=== PATIENT | female | born 1980 | race Caucasian/White ===

== ENCOUNTER 2023-09-12 14:40 | Outpatient (AMB) | payer BC, SELFPAY ==
[2023-09-12 14:49] VITALS: BP 122/70; PULSE 77; O2SAT 100; BMI 34.7
--- NOTE | 2023-09-12 14:49 | A.OFFPC_ITS ---
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 ?? Prior PCP:?None x 10 yrs Last office visit/CPE:?10+ yrs Acute issue(s):? Needs MMR ?? PMHx:?Depression/Anxiety has therapist and med provider for bupropion. HPV SurgHx:?LEEP 7 years ago FHx:?Mom:Unknown. Dad: Healthy Uncles x3 seizures. SocHx: Nonsmoker. EtOH social 3 dr a month. No drugs PFSH Medical History (Updated 09/12/23 @ 15:32 by Sherif Handley) Seizure Surgical History (Updated 09/12/23 @ 15:01 by Laure Bell CMA) No pertinent past surgical history Family History (Updated 09/12/23 @ 15:03 by Laure Bell CMA) Paternal Uncle Epilepsy Social History (Updated 09/12/23 @ 15:09 by Laure Bell CMA) Household Members: Significant Other Both parents involved: No Caregiver staying overnight: No Housing: House Are you a primary manager home healthcare to a significant other at home: No Do you presently have visiting nurse or other home services: No 75 years or older and lives alone: No Alcohol intake: current Alcohol intake frequency: holidays/special occasions only Alcohol type: other Comment: mixed drinks Patient Tobacco Use Status: Never used Tobacco e-Cigarette/Vaping Use: Never Used Special alexander needs: No Agree to transfusion: Yes service: No Current occupational status: employed 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 1. Little interest or pleasure in doing things: not at all 2. Feeling down, depressed, or hopeless: several days 3. Trouble falling or staying asleep, or sleeping too much: not at all 4. Feeling tired or having little energy: several days 5. Poor appetite or overeating: several days 6. Feeling bad about yourself - or that you are a failure or have let yourself or your family down: not at all 7. Trouble concentrating on things, such as reading the newspaper or watching television: several days 8. Moving or speaking so slowly that other people could have noticed. Or the opposite - being so fidgety or restless that you have been moving around a lot more than usual: not at all 9. Thoughts that you would be better off or of hurting yourself in some way: not at all Total score: 4 Depression Screening Interpretation: Negative Depression Screening Done: Yes 97552 - PHQ-9 Billing: Yes Source: Developed by Drs. Dangelo Disla, Rosmery Manjarrez, Trey Ortega and colleagues, with an educational mario from [employer]. Thrive Questionnaire Date Thrive assessed: 09/12/23 I am a: Patient What is your living situation today?: I have a steady place to live Within the past 12 months, did the food you bought not last and you didn't have the money to get more?: Never true Within the past 12 months, did you worry whether your food would run out before you got money to buy more?: Never true Do you have trouble paying for medicines?: No Do you have trouble getting transportation to medical appointments?: No Do you have trouble paying your heating and electricity bill?: No Do you have trouble taking care of your child, family member or friend?: No Do you have trouble with day-to-day activities such as bathing, preparing meals, shopping, managing finances, etc.?: No Are you currently unemployed and looking for a job?: No Are you interested in more education?: No THRIVE Score: 0 AUDIT C Alcohol Use Questionnaire (AUDIT-C) 1. How often do you have a drink containing alcohol?: Monthly or less 2. How many drinks containing alcohol do you have on a typical day when you are drinking?: 1 or 2 3. How often do you have six or more drinks on one occasion?: Never Total Score: 1 CONRADO-7 AMB Questionnaire CONRADO-7 Date CONRADO - 7 assessed: 09/12/23 Feeling nervous, anxious, or on edge: 0 = Not at all Not being able to stop or control worryin = Several days Worrying too much about different things: 0 = Not at all Trouble relaxin = Several days Being so restless that it is hard to sit still: 0 = Not at all Becoming easily annoyed or irritable: 1 = Several days Feeling afraid as if something awful might happen: 0 = Not at all Total CONRADO-7 score (0-4 normal; 5-9 mild; 10-14 moderate; 15-21 severe): 3 Source: Developed by Drs. Dangelo Disla, Rosmery Manjarrez, Trey Ortega and colleagues, with an educational mario from [employer]. CONRADO-7 Assessment Billing CONRADO-7 Assessment Tool: CONRADO-7 Assessment 50373 Review of Systems Const Denies chills, Denies fatigue, Denies fever(s), Denies headache(s) and Denies weakness Eyes Denies change in vision ENT Denies dizziness, Denies headache(s), Denies hearing loss, Denies nasal congestion, Denies sinus pain, Denies sinus pressure and Denies sore throat Card Denies chest pain, Denies lightheadedness, Denies dyspnea and Denies other (palpitations) Resp Denies cough, Denies dyspnea and Denies wheezing GI Denies abdominal pain, Denies melena, Denies hematochezia, Denies change in bowel habits, Denies dyspepsia and Denies nausea Denies hematuria and Denies dysuria Musc Denies abnormal gait, Denies myalgias, Denies arthralgias, Denies numbness and Denies tingling Skin/Breast Denies rash, Denies unusual bruising and Denies wounds Neuro Denies abnormal gait, Denies dizziness, Denies headache(s), Denies memory loss, Denies numbness, Denies Sensory deficit (Neuro), Denies tingling and Denies weakness Psych Denies anxiety, Denies depression and Denies memory loss Endo Denies cold intolerance, Denies fatigue, Denies heat intolerance, Denies polydipsia and Denies polyuria Manuel/Lymph Denies easy bleeding and Denies easy bruising Aller/Immun Denies wheezing Physical exam (Primary Care) Vital Signs: Last Vital Signs Pulse 77 09/12/23 14:49 BP 122/70 09/12/23 14:49 Pulse Ox 100 09/12/23 14:49 Oxygen Delivery Method Room Air 09/12/23 14:49 BMI result Body Mass Index 34.7 Tobacco/Smoking Status: Tobacco use Status Tobacco use date assessed 09/12/23 09/12/23 14:59 Patient Tobacco Use Status Never used Tobacco 09/12/23 15:09 Tobacco use type 09/12/23 15:09 e-Cigarette/Vaping Use Never Used 09/12/23 15:09 PHQ-9: PHQ-9 Score PHQ-9: Total score 4 09/12/23 15:17 Depression Screening Interpretation: Negative Thrive Assessment: Date of Thrive Assessment Date Thrive assessed 09/12/23 09/12/23 15:17 Const General: no acute distress, well developed, alert and awake Nutritional Appearance: well nourished Orientation/consciousness: patient oriented x3 HENMT Head: Yes normocephalic and Yes atraumatic Ears: hearing grossly normal bilaterally and TM's normal bilaterally General nose exam: Normal external nose present and Normal nares present Mouth: Normal oral and palatal mucosa present and moist mucous membranes Teeth and gingiva: dentition normal Throat: Yes posterior oropharynx normal Eyes General: appearance normal, both eyes and all related structures Pupils: Equal, round and reactive pupils present and Pupil accommodation reflex normal EOM: EOMs intact bilaterally Neck Neck: Yes normal visual inspection, Yes no lymphadenopathy and Yes trachea midline Thyroid: Thyroid normal Carotids: no bruits Lymphatic: no lymphadenopathy noted Chest Chest palpation & inspection: normal inspection of the chest Resp Effort & Inspection: normal respiratory effort Auscultation: clear to auscultation bilaterally Cardio Rate: regular rate Rhythm: regular rhythm Heart sounds: S1 normal heart sound present, S2 normal heart sound present, no gallops, no murmurs and no rubs Bruits: no abdominal aortic bruits and no carotid bruits GI Palpation (GI): No Abdominal aortic bruit present, Soft to palpation, nontender, No hepatosplenomegaly present and No Rebound tenderness present Auscultation: normal bowel sounds General: Yes no CVA tenderness Back/Spine/Pelvis Back: no CVA tenderness Cervical Spine: cervical ROM normal and No Cervical spine tenderness Thoracic/Lumbar Spine: thoraco-lumbar ROM normal, No pain with thoraco-lumbar ROM, No thoracic spinal tenderness and No lumbar spinal tenderness Skin Lesions: no lesions Rashes: no rashes Trauma: no lacerations or abrasions Wounds: no wounds Nails: normal Neuro General: patient oriented x3 Cranial nerves: Yes Equal, round and reactive pupils present Cognition (Neuro): normal cognition Gait exam (Neuro): Normal gait present Motor exam (neuro): 5/5 motor strength present throughout Sensory Exam: No Sensory deficit (Neuro) Deep tendon reflexes (DTR's): Right patellar reflex intensity grade: 2+ and Left patellar reflex intensity grade: 2+ Extrem General: Yes normal to inspection and No edema Psych Appearance: grossly normal Affect: normal affect Attitude: cooperative Thought process: Normal thought process present Assessment and Plan Assessment & Plan (1) Adult general medical exam: Code(s): Z00.00 - Encounter for general adult medical examination without abnormal findings Plan: 43-year-old?female?presents?as?new?patient?for?complete?physical?exam Exam?within?normal?limits Encouraged?healthy?diet?with?active?lifestyle?and?plenty?of?exercise (2) Immunization counseling: Code(s): Z71.85 - Encounter for immunization safety counseling Plan: MMR titer is ordered. With?patient?at?upcoming?telemedicine?appointment (3) Depression with anxiety: Code(s): F41.8 - Other specified anxiety disorders Plan: Well?controlled. No?concerns Follow-up?with therapist?and?psych?med?provider?as?recommended (4) HPV (human papilloma virus) infection: Code(s): B97.7 - Papillomavirus as the cause of diseases classified elsewhere Plan: Follow-up?with?wireline field operator?as?recommended (5) Screening for cervical cancer: Code(s): Z12.4 - Encounter for screening for malignant neoplasm of cervix Plan: Up-to-date?with?Pap?smears. Follow-up?with?wireline field operator?as?recommended (6) Breast cancer screening by mammogram: Code(s): Z12.31 - Encounter for screening mammogram for malignant neoplasm of breast Plan: Up-to-date?with?mammograms?screening?which?is?managed?by?her?wireline field operator Continue?annual?screening Plan We?discussed?that?she?will?begin?screening?for?colon?cancer?at?age?47 Orders: Orders Lipid Panel Today Z00.00 - Encounter for general adult medical examination without abnormal findings TSH reflex Free T4 Today Z00.00 - Encounter for general adult medical examination without abnormal findings UA and rflx microscopic Today Z00.00 - Encounter for general adult medical examination without abnormal findings Complete Blood Count Auto Diff Today Z00.00 - Encounter for general adult medical examination without abnormal findings Comprehensive [place]. Panel Fast Today Z00.00 - Encounter for general adult medical examination without abnormal findings Microalbumin, Random (w Creat) Today I10 - Essential (primary) hypertension MMR IgG Measles Mumps Rubella Today Z71.85 - Encounter for immunization safety counseling Coding Level of Care Code New Pt Level 3 (47225) New Pt Prev Care 40-64y(59404) Diagnoses Adult general medical exam Z00.00 Immunization counseling Z71.85 Depression with anxiety F41.8 HPV (human papilloma virus) infection B97.7 Screening for cervical cancer Z12.4 Breast cancer screening by mammogram Z12.31 Additional Codes CONRADO-7 Assessment Billing - CONRADO-7 Assessment Tool: CONRADO-7 Assessment 63861 ([id number])
== END 2023-09-12 15:37 | disposition home or self-care (01) ==
PROVIDERS: Visit Provider Family Medicine
DX: Z00.00 Encounter for general adult medical examination without abnormal findings (principal); Z71.85 Encounter for immunization safety counseling; F41.8 Other specified anxiety disorders; B97.7 Papillomavirus as the cause of diseases classified elsewhere; Z12.31 Encounter for screening mammogram for malignant neoplasm of breast
CPT/HCPCS: 99386

== ENCOUNTER 2023-09-28 09:17 | Outpatient (REF) | payer BC, SELFPAY ==
[2023-09-28 10:21] LABS: MANUAL DIFF FLAG NO
[2023-09-28 10:30] LABS: Basophils Percent Auto 0.6 % (0-2); Eosinophils Absolute Auto 0.4 X10*3/uL (0.0-0.4); Eosinophils Percent Auto 5.9 % (0-4); Hematocrit 41.2 % (37.0-47.0); Imm Gran Abs Auto 0.02 X10*3/uL (0.00-0.03); Imm Gran Pct Auto 0.3 % (0.0-0.4); Lymphocytes Absolute Auto 2.2 X10*3/uL (1.2-4.9); Lymphocytes Percent Auto 30.8 % (20-40); Mean Corpuscular Hemoglobin 31.4 pg (27.0-33.0); Mean Corpuscular Volume 92.4 fL (80.0-98.0); Mean Platelet Volume 9.6 fL (9.4-12.3); Monocytes Absolute Auto 0.4 X10*3/uL (0.1-1.2); Monocytes Percent Auto 5.6 % (2-11); Neutrophils Absolute Auto 4.1 x10*3/uL (2.0-8.3); Neutrophils Percent Auto 56.8 % (45-73); Platelet Count 277 X10*3/uL (160-400); Red Blood Count 4.46 X10*6/uL (4.20-5.50); Red Cell Distribution Width 12.3 % (11.0-16.0); White Blood Count 7.1 X10*3/uL (4.8-10.8)
[2023-09-28 11:04] LABS: Alanine Aminotransferase 21 U/L (0-31); Albumin Level 3.9 g/dL (3.5-5.0); Alkaline Phosphatase 79 U/L (39-117); Anion Gap 11 (12-20); Aspartate Amino Transferase 18 U/L (5-31); Bilirubin Total 0.6 mg/dL (0.0-1.0); Blood Urea Nitrogen 11 mg/dL (9-16); Calcium 8.9 mg/dL (8.4-10.2); Carbon Dioxide 26 mmol/L (22-29); Chloride 107 mmol/L (96-108); Cholesterol 169 mg/dL (<200); Estimated Glomerular Filt Rate > 60; Glucose Fasting 79 mg/dL (60-99); HDL Cholesterol 62 mg/dL (>40); LDL Cholesterol Calculated 95 mg/dL (<100); Potassium 4.2 mmol/L (3.3-5.1); Sodium 140 mmol/L (135-145); Total Protein 7.2 g/dL (6.5-8.0); Triglycerides 60 mg/dL (<150)
[2023-09-28 11:09] LABS: Appearance Urine Hazy; Color Urine Yellow; PH 8.5 (5.0-9.0)
[2023-09-28 11:10] LABS: Glucose Urine UA Negative (Negative); Leukocyte Esterase Urine Trace (Negative); Nitrite Urine Negative (Negative); Specific Gravity - Urine 1.015 (1.005-1.025); UMIC TRIGGER UA YES; Urine Blood Large (3+) (Negative); Urine Ketones Negative (Negative); Urine Protein Trace mg/dL (Neg-Trace)
[2023-09-28 11:11] LABS: Bacteria Urine 1+ (None Seen); Hyaline Casts Urine 0-2 /LPF (0-2); RBC Urine >20 /HPF (0-2); WBC Urine 0-5 /HPF (0-5)
[2023-09-28 11:20] LABS: TSH reflex Free T4 0.87 uIU/mL (0.32-4.0)
[2023-09-28 11:31] LABS: Creatinine Urine 77.47 mg/dL; Microalbum/Creatinine Ratio Ur 55.5 ug/mg cr (<30)
[2023-09-30 18:37] LABS: Rubella IgG Antibody 3.45 Index
== END 2023-09-28 09:18 | disposition home or self-care (01) ==
LOC: HO.LAB 09:17
PROVIDERS: PCP Family Medicine; Visit Provider Family Medicine
DX: Z00.00 Encounter for general adult medical examination without abnormal findings (principal); Z71.85 Encounter for immunization safety counseling; I10 Essential (primary) hypertension
CPT/HCPCS: 36415; 80053; 80061; 81001; 81003; 82043; 82570; 84443; 85025; 86735; 86762; 86765

== ENCOUNTER → 2023-10-17 16:37 | Outpatient (AMB) | payer BC, SELFPAY ==
--- NOTE | 2023-10-17 16:34 | A.OFFPC_ITS ---
Intake Visit Reasons: f/u [facility] via telemedicine Ophthalmology Assistant Required: No Allergies amoxicillin Allergy (Mild, Verified 10/17/23 16:35) Rash Medication List - Last Reconciled 10/17/23 by Babak Elam MD bupropion HCl 75 mg PO .PRN bupropion HCl 150 mg PO ONCE Tobacco use date assessed: 09/12/23 Dental Screening Dental Screen Date: 09/12/23 HPI f/u [facility] via telemedicine HPI Details 43 y/o female presents to f/u [facility] v ia telemedicine. Labs were drawn 09/28/23. Reviewed labs with pt. Triglycerides 60. TC 169. LDL 95. HDL 62. Blood in urine and pt states she was having her period. Patient?needed?MMR?titers?for?work PFSH Medical History (Updated 10/17/23 @ 17:18 by Sherif Handley) Seizure Surgical History (Updated 09/12/23 @ 15:01 by Laure Bell CMA) No pertinent past surgical history Family History (Updated 09/12/23 @ 15:03 by Laure Bell CMA) Paternal Uncle Epilepsy Social History (Updated 09/12/23 @ 15:09 by Laure Bell CMA) Household Members: Significant Other Both parents involved: No Caregiver staying overnight: No Housing: House Are you a primary health care marketing specialist to a significant other at home: No Do you presently have visiting nurse or other home services: No 75 years or older and lives alone: No Alcohol intake: current Alcohol intake frequency: holidays/special occasions only Alcohol type: other Comment: mixed drinks Patient Tobacco Use Status: Never used Tobacco e-Cigarette/Vaping Use: Never Used Special alexander needs: No Agree to transfusion: Yes service: No Current occupational status: employed 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 Dangelo Disla, Rosmery Manjarrez, Trey Ortega and colleagues, with an educational mario from [employer]. Review of Systems Const Denies chills, Denies fatigue, Denies fever(s), Denies headache(s) and Denies weakness ENT Denies dizziness and Denies headache(s) Card Denies dyspnea Resp Denies cough, Denies dyspnea, Denies wheezing and Denies other (shortness of breath) Musc Denies numbness and Denies tingling Neuro Denies dizziness, Denies headache(s), Denies numbness, Denies tingling and Denies weakness Psych Denies anxiety and Denies depression Endo Denies fatigue Aller/Immun Denies wheezing Physical exam (Primary Care) Tobacco/Smoking Status: Tobacco use Status Tobacco use date assessed 09/12/23 10/17/23 16:36 Patient Tobacco Use Status Never used Tobacco 10/17/23 16:36 Tobacco use type 09/12/23 15:38 e-Cigarette/Vaping Use Never Used 10/17/23 16:36 Thrive Assessment: Date of Thrive Assessment Date Thrive assessed 09/12/23 10/17/23 16:36 Telehealth Telehealth Telehealth Platform: Telephone Location of provider rendering services: practice address Location of patient: other Patient Identification confirmed using: Name, : Yes Telehealth method: voice only Patient verbally consented to treatment: Yes Patient verbally consented to billing insurance company: Yes Patient informed of any privacy concerns related to visit: Yes Minutes spent on Phone/Video with Pt.: 5 Assessment and Plan Assessment & Plan (1) Immunization counseling: Code(s): Z71.85 - Encounter for immunization safety counseling Plan: Titers?for?measles?mumps?and?rubella?all?show?immune?status. Patient?is?already?picked?up?documentation?for?work. (2) Blood in urine: Code(s): R31.9 - Hematuria, unspecified Plan: Patient?notes?that?she?was?on?her. No?blood?in?her?urine?before?or?after?this.??No?dysuria. Likely?contamination. Orders: Orders Complete Blood Count Auto Diff Today Z00.00 - Encounter for general adult medical examination without abnormal findings Lipid Panel Today Z00.00 - Encounter for general adult medical examination without abnormal findings TSH reflex Free T4 Today Z00.00 - Encounter for general adult medical examination without abnormal findings UA and rflx microscopic Today Z00.00 - Encounter for general adult medical examination without abnormal findings Comprehensive [place]. Panel Fast Today Z00.00 - Encounter for general adult medical examination without abnormal findings Microalbumin, Random (w Creat) Today I10 - Essential (primary) hypertension Coding Level of Care Code Tele Est Pt Level 2 (33659) Diagnoses Immunization counseling Z71.85 Blood in urine R31.9
== END ==
LOC: HO.HMGFM 16:37
PROVIDERS: PCP Family Medicine; Visit Provider Family Medicine
DX: R31.9 Hematuria, unspecified (principal); Z71.85 Encounter for immunization safety counseling
CPT/HCPCS: 99441